=== PATIENT | male | born 2000 | race Caucasian/White ===

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

== ENCOUNTER 2024-08-20 18:07 | Emergency (ER) | payer OTHER ==
[~2024-08-20] VITALS: Ht 175.3 cm; Wt 68.0 kg
[2024-08-20] MEDS ORDERED: TYLENOL ARTHRI650 MG PO (19:10)
[2024-08-20] MEDS ORDERED: ORPHENADRINE CITRATE 30 MG/ML AMPUL ONE (19:30)
[2024-08-20] MEDS ORDERED: ORPHENADRINE CITRATE 30 MG/ML AMPUL IM ONE (19:30)
[2024-08-20] MEDS ORDERED: KETOROLAC TROMETHAMINE 60 MG VIAL IM ONE ×2 (19:30)
== END 2024-08-20 19:37 | disposition home or self-care (01) ==
LOC: ER 18:09
DX: M54.89 Other dorsalgia (principal)